=== PATIENT | male | born 1940 | race Caucasian/White ===

== ENCOUNTER 2019-02-26 19:20 | Inpatient (IN) ==
[2019-02-26] MEDS ORDERED: SODIUM CHLORIDE 0.9% 500 ML IV STA (19:42)
[2019-02-26] MEDS ORDERED: ONDANSETRON 4 MG/2 ML VIAL IV STA (19:42)
[2019-02-26] MEDS ORDERED: cefTRIAXone 1,000 MG in SODIUM CHLORIDE 0.9% 100 ML IV STA (19:42)
[2019-02-26] MEDS ORDERED: methylPREDNISolone SOD SUC 125 MG/2 ML VIAL IV STA (19:42)
[2019-02-26] MEDS ORDERED: ALBUTEROL NEB SOLN 5 MG/ML 20 ML/BOTTLE RESP TX SCH (20:00)
[2019-02-26 20:11] LABS: Basophils % 0.1 % (0.0-0.8); Hematocrit 34.5 VOL% (42.0-52.0); Hemoglobin 11.2 GM/DL (14.0-18.0); Immature Granulocytes % 0.6 %; Immature Granulocytes Absolute 0.14 #; Lymphocytes # 1.7 10*3/uL (1.4-4.0); Lymphocytes % 7.5 % (21.2-54.2); Mean Corpuscular HGB Conc 32.5 GM/DL (32-36); Mean Corpuscular Volume 105.2 FL (87-102); Mean Platelet Volume 9.5 FL (9.6-12.0); Monocytes % 6.8 % (1.7-12.7); Platelet Count 211 T/CUMM (130-400); Red Blood Count 3.28 MC/CUMM (3.8-5.5); White Blood Count 22.1 T/CUMM (4-12)
[2019-02-26 20:15] LABS: PT Patient Result 11.1 SECS (9.6-12.2)
[2019-02-26 20:36] LABS: Albumin 3.3 G/DL (3.4-5.0); Bilirubin,Total 0.6 MG/DL (0.2-1.0); Calcium 8.2 MG/DL (8.5-10.1); Osmolality,Calculated 274.8 MOS/KG (273-304); Total Protein 6.3 G/DL (6.4-8.3)
[2019-02-26 20:39] LABS: Band Neutrophils 3 % (0-10); Lymphocytes 11 % (20-55); Segmented Neutrophils 80 % (50-85); Total Cells Counted 100
[2019-02-26 20:40] LABS: Macrocytosis Slight; Platelet Estimate Adequate
[2019-02-26 21:44] LABS: ABG Base Excess 0.5 MMOL/L (-2.5-2.5); ABG HCO3 24.8 MMOL/L (20-26); ABG Oxygen Saturation 91.4 % (95-100); ABG PH 7.457 (7.35-7.45); ABG PO2 55.8 MM HG (80-95); ABG TCO2 21.7 MMOL/L (23-27); Allen Test Positive; Pt O2 Delivery Device Room Air
[2019-02-26] MEDS ORDERED: ACETAMINOPHEN 325 MG TABLET PO PRN (22:16)
[2019-02-26] MEDS ORDERED: MORPHINE 4 MG/1 ML VIAL IV PRN (22:16)
[2019-02-26] MEDS ORDERED: ONDANSETRON 4 MG/2 ML VIAL IV PRN (22:16)
[2019-02-26] MEDS ORDERED: LEVOFLOXACIN INJ 500 MG in PREMIX 1 EACH IV SCH (22:30)
[2019-02-26] MEDS ORDERED: INFLUENZA VIRUS VACCINE 0.5 ML SYRINGE IM ONE (22:32)
[2019-02-26] MEDS: SODIUM CHLORIDE 0.9% 1,000 ML IV SCH (22:42)
[2019-02-26] MEDS: ENOXAPARIN 40 MG/0.4 ML SYRINGE SUBCUT SCH (22:46)
[2019-02-26] MEDS: DOCUSATE SODIUM 100 MG CAPSULE PO SCH (22:47)
[2019-02-26] MEDS: ALBUTEROL/IPRATROPIUM 3 ML NEB RESP TX SCH (23:07)
[2019-02-27] MEDS: PIPERACILLIN/TAZOBACTAM 3,375 MG in SODIUM CHLORIDE 0.9% 100 ML IV SCH ×2 (00:58→08:40)
[2019-02-27] MEDS: ALBUTEROL/IPRATROPIUM 3 ML NEB RESP TX SCH ×5 (02:39→19:30)
[2019-02-27] MEDS: SODIUM CHLORIDE 0.9% 1,000 ML IV SCH ×3 (06:00→22:00)
[2019-02-27] MEDS: methylPREDNISolone SOD SUC 40 MG/1 ML VIAL IV SCH ×3 (06:15→21:42)
[2019-02-27 06:19] LABS: Basophils % 0.1 % (0.0-0.8); Hematocrit 27.5 VOL% (42.0-52.0); Hemoglobin 8.9 GM/DL (14.0-18.0); Immature Granulocytes % 0.4 %; Immature Granulocytes Absolute 0.06 #; Lymphocytes # 1.1 10*3/uL (1.4-4.0); Lymphocytes % 6.7 % (21.2-54.2); Mean Corpuscular HGB Conc 32.4 GM/DL (32-36); Mean Corpuscular Volume 106.6 FL (87-102); Mean Platelet Volume 9.9 FL (9.6-12.0); Neutrophils % 86.8 % (38.7-73.9); Platelet Count 180 T/CUMM (130-400); Red Blood Count 2.58 MC/CUMM (3.8-5.5); White Blood Count 15.9 T/CUMM (4-12)
[2019-02-27 06:42] LABS: Albumin 2.6 G/DL (3.4-5.0); Bilirubin,Total 0.7 MG/DL (0.2-1.0); Calcium 7.7 MG/DL (8.5-10.1); Osmolality,Calculated 285.1 MOS/KG (273-304); Total Protein 5.7 G/DL (6.4-8.3)
[2019-02-27] MEDS: PANTOPRAZOLE 40 MG VIAL IV SCH (08:40)
[2019-02-27] MEDS: DOCUSATE SODIUM 100 MG CAPSULE PO SCH ×2 (08:41→21:41)
[2019-02-27 09:26] LABS: Apearance,Urine CLEAR (Clear); Bilirubin,Urine Negative (Negative); Blood, Urine Negative (Negative); Glucose,Urine (UA) Negative (Negative); Ketones,Urine Negative (Negative); Nitrite,Urine Negative (Negative); Protein,Urine Negative; RBC,Urine 1 /HPF (0-4); Urine Specific Gravity 1.033 (1.001-1.035); Urine Urobilinogen < 2.0 EU/DL (0.2-1.0); WBC,Urine <1 /HPF (0-6)
[2019-02-27 09:27] LABS: Urine Color Dark yellow (Yellow)
[2019-02-27] MEDS ORDERED: MAGNESIUM HYDROXIDE SUSP 30 ML UDCUP PO PRN (13:18)
[2019-02-27] MEDS ORDERED: NITROGLYCERIN SL 0.4 MG TABLET SL PRN (13:18)
[2019-02-27] MEDS ORDERED: NON-FORMULARY MEDICATION (Cranberry 500 MG) PO SCH (13:30)
[2019-02-27] MEDS ORDERED: CILOSTAZOL 100 MG TABLET PO SCH (13:30)
[2019-02-27] MEDS: ASPIRIN CHEW 81 MG TABLET PO SCH (14:16)
[2019-02-27] MEDS: ATORVASTATIN 20 MG TABLET PO SCH (14:17)
[2019-02-27] MEDS: CHOLECALCIFEROL 5,000 UNIT TABLET PO SCH (14:17)
[2019-02-27] MEDS: PHENYTOIN ER 100 MG CAPSULE PO SCH ×2 (14:17→21:41)
[2019-02-27] MEDS: hydroCHLOROthiazide 12.5 MG CAPSULE PO SCH (14:17)
[2019-02-27] MEDS: ENOXAPARIN 40 MG/0.4 ML SYRINGE SUBCUT SCH (21:41)
[2019-02-27] MEDS: OMEGA 3 ACID ETHYL ESTERS 1 GM CAPSULE PO SCH (21:41)
[2019-02-27] MEDS: BUDESONIDE/FORMOTEROL 160-4.5 INHALER 6 GM INH SCH (21:42)
[2019-02-27] MEDS: POLYETHYLENE GLYCOL POWDER 17 GM PACK PO SCH (21:42)
[2019-02-27] MEDS: TAMSULOSIN 0.4 MG CAPSULE PO SCH (21:47)
[2019-02-28] MEDS: ALBUTEROL/IPRATROPIUM 3 ML NEB RESP TX SCH ×3 (00:20→07:22)
[2019-02-28 04:34] LABS: Basophils % 0.2 % (0.0-0.8); Hemoglobin 8.5 GM/DL (14.0-18.0); Immature Granulocytes % 0.6 %; Immature Granulocytes Absolute 0.06 #; Lymphocytes # 0.8 10*3/uL (1.4-4.0); Lymphocytes % 7.5 % (21.2-54.2); Mean Corpuscular HGB Conc 31.5 GM/DL (32-36); Mean Corpuscular Volume 107.6 FL (87-102); Mean Platelet Volume 9.6 FL (9.6-12.0); Monocytes % 6.5 % (1.7-12.7); Neutrophils % 85.2 % (38.7-73.9); Platelet Count 171 T/CUMM (130-400); Red Blood Count 2.51 MC/CUMM (3.8-5.5); Red Cell Distribution Width 14.8 % (9.3-17.3); White Blood Count 10.4 T/CUMM (4-12)
[2019-02-28 05:05] LABS: Osmolality,Calculated 289.4 MOS/KG (273-304)
[2019-02-28 05:09] LABS: Calcium 7.7 MG/DL (8.5-10.1)
[2019-02-28] MEDS: methylPREDNISolone SOD SUC 40 MG/1 ML VIAL IV SCH (05:46)
[2019-02-28 08:01] VITALS: BP 121/48
[2019-02-28] MEDS: POLYETHYLENE GLYCOL POWDER 17 GM PACK PO SCH (08:48)
[2019-02-28] MEDS: SODIUM CHLORIDE 0.9% 1,000 ML IV SCH (08:48)
[2019-02-28] MEDS: ATORVASTATIN 20 MG TABLET PO SCH (08:49)
[2019-02-28] MEDS: CHOLECALCIFEROL 5,000 UNIT TABLET PO SCH (08:49)
[2019-02-28] MEDS: PHENYTOIN ER 100 MG CAPSULE PO SCH (08:49)
[2019-02-28] MEDS: TAMSULOSIN 0.4 MG CAPSULE PO SCH (08:49)
[2019-02-28] MEDS: OMEGA 3 ACID ETHYL ESTERS 1 GM CAPSULE PO SCH (08:50)
[2019-02-28] MEDS: PANTOPRAZOLE 40 MG VIAL IV SCH (08:50)
[2019-02-28] MEDS: hydroCHLOROthiazide 12.5 MG CAPSULE PO SCH (08:50)
[2019-02-28] MEDS: DOCUSATE SODIUM 100 MG CAPSULE PO SCH (08:50)
[2019-02-28] MEDS: ASPIRIN CHEW 81 MG TABLET PO SCH (08:50)
[2019-02-28] MEDS: BUDESONIDE/FORMOTEROL 160-4.5 INHALER 6 GM INH SCH (08:51)
[2019-02-28] MEDS ORDERED: MULTIVITAMIN (CENTRUM) TABLET PO SCH (09:00)
[2019-02-28] MEDS ORDERED: FERROUS SULFATE ER 140 MG TABLET PO SCH (09:00)
[2019-02-28] MEDS ORDERED: MULTIVITAMIN (BEROCCA) TABLET PO SCH (09:00)
[2019-02-28] MEDS ORDERED: VITAMIN E 400 UNIT CAPSULE PO SCH (09:00)
[2019-02-28] MEDS ORDERED: POTASSIUM CHLORIDE 10 MEQ TABLET PO SCH (09:00)
[2019-02-28] MEDS ORDERED: POTASSIUM CHLORIDE 20 MEQ TABLET PO PRN (09:42)
[2019-02-28] MEDS ORDERED: LEVOFLOXACIN 500 MG TABLET PO SCH (15:00)
== END 2019-02-28 11:27 | disposition home or self-care (01) | DRG 194 ==
LOC: EDUNIT# → EDBD → N.ED 19:20 → N.EDINP 20:55 → N.2E 21:55
PROVIDERS: ADMIT Family Medicine; ATTEND Family Medicine

== ENCOUNTER 2019-04-26 18:53 | Inpatient (IN) ==
[2019-04-26] MEDS ORDERED: ALBUTEROL/IPRATROPIUM 3 ML NEB RESP TX STA (18:59)
[2019-04-26] MEDS ORDERED: MAGNESIUM SULF RIDER 2 GM in PREMIX 1 EACH IV STA (18:59)
[2019-04-26] MEDS ORDERED: methylPREDNISolone SOD SUC 125 MG/2 ML VIAL IV STA (18:59)
[2019-04-26 19:18] LABS: Basophils % 0.1 % (0.0-0.8); Eosinophils % 0.1 % (0.00-10.9); Hematocrit 34.1 VOL% (42.0-52.0); Hemoglobin 11.1 GM/DL (14.0-18.0); Immature Granulocytes % 0.4 %; Immature Granulocytes Absolute 0.03 #; Lymphocytes # 0.9 10*3/uL (1.4-4.0); Lymphocytes % 11.9 % (21.2-54.2); Mean Corpuscular HGB Conc 32.6 GM/DL (32-36); Mean Corpuscular Volume 112.9 FL (87-102); Mean Platelet Volume 9.6 FL (9.6-12.0); Monocytes % 7.4 % (1.7-12.7); Neutrophils % 80.1 % (38.7-73.9); Platelet Count 205 T/CUMM (130-400); Red Blood Count 3.02 MC/CUMM (3.8-5.5); Red Cell Distribution Width 13.2 % (9.3-17.3); White Blood Count 7.6 T/CUMM (4-12)
[2019-04-26 19:25] LABS: ABG Base Excess 1.6 MMOL/L (-2.5-2.5); ABG HCO3 25.9 MMOL/L (20-26); ABG Oxygen Saturation 97.9 % (95-100); ABG PCO2 34.1 MM HG (35-48); ABG PH 7.471 (7.35-7.45); ABG PO2 81.9 MM HG (80-95); ABG TCO2 22.3 MMOL/L (23-27); Allen Test Positive
[2019-04-26 19:46] LABS: Albumin 3.4 G/DL (3.4-5.0); Bilirubin,Total 0.4 MG/DL (0.2-1.0); Calcium 8.6 MG/DL (8.5-10.1); Osmolality,Calculated 281.5 MOS/KG (273-304); Total Protein 6.8 G/DL (6.4-8.3)
[2019-04-26] MEDS: ALBUTEROL 2.5 MG/3 ML NEB RESP TX SCH ×3 (20:01→20:58)
[2019-04-26] MEDS ORDERED: SODIUM CHLORIDE 0.9% 2,000 ML IV ONE (20:45)
[2019-04-26] MEDS ORDERED: ALBUTEROL 2.5 MG/3 ML NEB RESP TX PRN (20:47)
[2019-04-26] MEDS ORDERED: hydrALAZINE 20 MG/1 ML VIAL IV PRN (20:48)
[2019-04-26] MEDS ORDERED: DOCUSATE SODIUM 100 MG CAPSULE PO PRN (20:52)
[2019-04-26] MEDS ORDERED: ONDANSETRON 4 MG/2 ML VIAL IV PRN (20:52)
[2019-04-26] MEDS ORDERED: PROMETHAZINE 25 MG TABLET PO PRN (20:52)
[2019-04-26] MEDS ORDERED: guaiFENesin/DM ER 600-30 MG TABLET PO PRN (20:52)
[2019-04-26] MEDS ORDERED: ACETAMINOPHEN 325 MG TABLET PO PRN (20:52)
[2019-04-26] MEDS ORDERED: VANCOMYCIN INJ 1,000 MG in SODIUM CHLORIDE 0.9% 250 ML IV SCH (21:00)
[2019-04-26] MEDS ORDERED: LEVOFLOXACIN INJ 500 MG in PREMIX 1 EACH IV SCH (21:00)
[2019-04-26 22:03] LABS: Anisocytosis 1+; Platelet Estimate Adequate
[2019-04-26] MEDS: ALBUTEROL/IPRATROPIUM 3 ML NEB RESP TX SCH (23:30)
[2019-04-26] MEDS: ENOXAPARIN 40 MG/0.4 ML SYRINGE SUBCUT SCH (23:35)
[2019-04-26] MEDS: SODIUM CHLORIDE 0.9% 1,000 ML IV SCH (23:36)
[2019-04-27] MEDS ORDERED: methylPREDNISolone SOD SUC 40 MG/1 ML VIAL IV SCH ×2 (03:00→08:00)
[2019-04-27] MEDS: ALBUTEROL/IPRATROPIUM 3 ML NEB RESP TX SCH ×5 (03:19→18:50)
[2019-04-27 05:22] LABS: Calcium 7.8 MG/DL (8.5-10.1); Osmolality,Calculated 278.7 MOS/KG (273-304)
[2019-04-27 07:51] LABS: ABG Base Excess -1.6 MMOL/L (-2.5-2.5); ABG HCO3 22.3 MMOL/L (20-26); ABG Oxygen Saturation 98.9 % (95-100); ABG PCO2 34.5 MM HG (35-48); ABG PH 7.428 (7.35-7.45); ABG PO2 159.7 MM HG (80-95); ABG TCO2 23.3 MMOL/L (23-27)
[2019-04-27] MEDS ORDERED: LORazepam 2 MG/1 ML VIAL IV ONE (07:57)
[2019-04-27] MEDS: PANTOPRAZOLE 40 MG TABLET PO SCH (10:05)
[2019-04-27] MEDS: NICOTINE 21 MG/24 HR PATCH TRANSDERM SCH (10:08)
[2019-04-27] MEDS: cefTRIAXone 1,000 MG in SYRINGE 1 EACH IV SCH (12:56)
[2019-04-27] MEDS: SODIUM CHLORIDE 0.9% 1,000 ML IV SCH (15:00)
[2019-04-27] MEDS: methylPREDNISolone SOD SUC 40 MG/1 ML VIAL IV SCH ×2 (15:05→21:04)
[2019-04-27] MEDS: ENOXAPARIN 40 MG/0.4 ML SYRINGE SUBCUT SCH (21:04)
[2019-04-27] MEDS: ZALEPLON 5 MG CAPSULE PO PRN (21:11)
[2019-04-27 22:46] LABS: Apearance,Urine CLEAR (Clear); Bilirubin,Urine Negative (Negative); Blood, Urine Negative (Negative); Glucose,Urine (UA) Negative (Negative); Ketones,Urine Negative (Negative); Nitrite,Urine Negative (Negative); Protein,Urine Negative; RBC,Urine 2 /HPF (0-4); Urine Color Yellow (Yellow); Urine Specific Gravity 1.005 (1.001-1.035); Urine Urobilinogen < 2.0 EU/DL (0.2-1.0); WBC,Urine 1 /HPF (0-6)
[2019-04-28] MEDS: ALBUTEROL/IPRATROPIUM 3 ML NEB RESP TX SCH ×7 (00:31→23:22)
[2019-04-28] MEDS: methylPREDNISolone SOD SUC 40 MG/1 ML VIAL IV SCH ×4 (03:38→21:06)
[2019-04-28] MEDS ORDERED: POLYCARBOPHIL 625 MG TABLET PO PRN (09:13)
[2019-04-28] MEDS ORDERED: NON-FORMULARY MEDICATION (Omeprazole 20 MG) PO SCH (09:15)
[2019-04-28] MEDS: SODIUM CHLORIDE 0.9% 1,000 ML IV SCH (09:55)
[2019-04-28] MEDS: NICOTINE 21 MG/24 HR PATCH TRANSDERM SCH (10:32)
[2019-04-28] MEDS: PANTOPRAZOLE 40 MG TABLET PO SCH (10:35)
[2019-04-28] MEDS: PHENYTOIN ER 100 MG CAPSULE PO SCH ×2 (10:36→20:45)
[2019-04-28] MEDS: TAMSULOSIN 0.4 MG CAPSULE PO SCH ×2 (10:39→20:46)
[2019-04-28] MEDS: hydroCHLOROthiazide 12.5 MG CAPSULE PO SCH (10:40)
[2019-04-28] MEDS: POTASSIUM CHLORIDE 10 MEQ TABLET PO SCH (10:41)
[2019-04-28] MEDS: cilostazoL 100 MG TABLET PO SCH ×2 (10:42→20:45)
[2019-04-28] MEDS: cefTRIAXone 1,000 MG in SYRINGE 1 EACH IV SCH (13:42)
[2019-04-28] MEDS: ASPIRIN CHEW 81 MG TABLET PO SCH (20:45)
[2019-04-28] MEDS: ENOXAPARIN 40 MG/0.4 ML SYRINGE SUBCUT SCH (20:46)
[2019-04-28] MEDS: ZALEPLON 5 MG CAPSULE PO PRN (21:09)
[2019-04-29] MEDS: SODIUM CHLORIDE 0.9% 1,000 ML IV SCH ×2 (03:17→17:00)
[2019-04-29] MEDS: methylPREDNISolone SOD SUC 40 MG/1 ML VIAL IV SCH ×4 (03:17→21:12)
[2019-04-29] MEDS: ALBUTEROL/IPRATROPIUM 3 ML NEB RESP TX SCH ×5 (03:22→20:52)
[2019-04-29] MEDS: NICOTINE 21 MG/24 HR PATCH TRANSDERM SCH (09:02)
[2019-04-29] MEDS: cilostazoL 100 MG TABLET PO SCH ×2 (09:02→21:12)
[2019-04-29] MEDS: PHENYTOIN ER 100 MG CAPSULE PO SCH ×2 (09:02→21:11)
[2019-04-29] MEDS: TAMSULOSIN 0.4 MG CAPSULE PO SCH ×2 (09:03→21:12)
[2019-04-29] MEDS: FERROUS SULFATE 325 MG TABLET PO SCH (09:03)
[2019-04-29] MEDS: PANTOPRAZOLE 40 MG TABLET PO SCH (09:03)
[2019-04-29] MEDS: hydroCHLOROthiazide 12.5 MG CAPSULE PO SCH (09:03)
[2019-04-29] MEDS: POTASSIUM CHLORIDE 10 MEQ TABLET PO SCH (09:03)
[2019-04-29] MEDS: cefTRIAXone 1,000 MG in SYRINGE 1 EACH IV SCH (14:36)
[2019-04-29] MEDS: ENOXAPARIN 40 MG/0.4 ML SYRINGE SUBCUT SCH (21:12)
[2019-04-29] MEDS: ASPIRIN CHEW 81 MG TABLET PO SCH (21:12)
[2019-04-29] MEDS: ZALEPLON 5 MG CAPSULE PO PRN (23:21)
[2019-04-30] MEDS: ALBUTEROL/IPRATROPIUM 3 ML NEB RESP TX SCH ×6 (00:43→20:07)
[2019-04-30] MEDS: methylPREDNISolone SOD SUC 40 MG/1 ML VIAL IV SCH ×4 (03:48→21:37)
[2019-04-30] MEDS: POTASSIUM CHLORIDE 10 MEQ TABLET PO SCH (09:04)
[2019-04-30] MEDS: TAMSULOSIN 0.4 MG CAPSULE PO SCH ×2 (09:04→20:48)
[2019-04-30] MEDS: SODIUM CHLORIDE 0.9% 1,000 ML IV SCH (09:04)
[2019-04-30] MEDS: cilostazoL 100 MG TABLET PO SCH ×2 (09:04→20:48)
[2019-04-30] MEDS: PHENYTOIN ER 100 MG CAPSULE PO SCH ×2 (09:04→20:48)
[2019-04-30] MEDS: hydroCHLOROthiazide 12.5 MG CAPSULE PO SCH (09:04)
[2019-04-30] MEDS: PANTOPRAZOLE 40 MG TABLET PO SCH (09:05)
[2019-04-30] MEDS: NICOTINE 21 MG/24 HR PATCH TRANSDERM SCH (09:05)
[2019-04-30] MEDS: cefTRIAXone 1,000 MG in SYRINGE 1 EACH IV SCH (14:54)
[2019-04-30] MEDS: ENOXAPARIN 40 MG/0.4 ML SYRINGE SUBCUT SCH (20:48)
[2019-04-30] MEDS: ASPIRIN CHEW 81 MG TABLET PO SCH (20:48)
[2019-04-30] MEDS: ZALEPLON 5 MG CAPSULE PO PRN (20:48)
[2019-05-01] MEDS: SODIUM CHLORIDE 0.9% 1,000 ML IV SCH ×2 (00:42→17:37)
[2019-05-01] MEDS: ALBUTEROL/IPRATROPIUM 3 ML NEB RESP TX SCH ×7 (00:44→22:46)
[2019-05-01] MEDS: methylPREDNISolone SOD SUC 40 MG/1 ML VIAL IV SCH ×4 (03:48→21:00)
[2019-05-01] MEDS ORDERED: LIDOCAINE 1% 20 ML VIAL MISC INJ ONE (06:00)
[2019-05-01] MEDS ORDERED: LIDOCAINE 2% 20 ML VIAL RESP TX ONE (06:00)
[2019-05-01] MEDS ORDERED: PROMETHAZINE 25 MG/1 ML VIAL IM ONE (06:00)
[2019-05-01] MEDS ORDERED: GLYCOPYRROLATE 0.4 MG/2 ML VIAL IM ONE (06:00)
[2019-05-01 06:18] LABS: Basophils % 0.2 % (0.0-0.8); Eosinophils % 0.5 % (0.00-10.9); Hematocrit 33.1 VOL% (42.0-52.0); Hemoglobin 10.6 GM/DL (14.0-18.0); Immature Granulocytes % 0.2 %; Immature Granulocytes Absolute 0.01 #; Lymphocytes # 0.6 10*3/uL (1.4-4.0); Lymphocytes % 13.3 % (21.2-54.2); Mean Corpuscular Volume 110.7 FL (87-102); Mean Platelet Volume 9.5 FL (9.6-12.0); Monocytes % 9.2 % (1.7-12.7); Neutrophils % 76.6 % (38.7-73.9); Platelet Count 190 T/CUMM (130-400); Red Blood Count 2.99 MC/CUMM (3.8-5.5); Red Cell Distribution Width 12.6 % (9.3-17.3); White Blood Count 4.2 T/CUMM (4-12)
[2019-05-01 06:39] LABS: Anisocytosis 2+; Macrocytosis 2+; Platelet Estimate Normal
[2019-05-01] MEDS ORDERED: MEPERIDINE 50 MG/1 ML VIAL IM ONE (07:00)
[2019-05-01] MEDS ORDERED: LIDOCAINE 2% VISCOUS 100 ML BOTTLE SWISH/SPIT ONE (07:30)
[2019-05-01] MEDS ORDERED: MIDAZOLAM 2 MG/2 ML VIAL IV ONE (07:30)
[2019-05-01] MEDS ORDERED: MIDAZOLAM 2 MG/2 ML VIAL ONE (08:27)
[2019-05-01] MEDS: cilostazoL 100 MG TABLET PO SCH ×2 (09:45→20:50)
[2019-05-01] MEDS: POTASSIUM CHLORIDE 10 MEQ TABLET PO SCH (09:45)
[2019-05-01] MEDS: PHENYTOIN ER 100 MG CAPSULE PO SCH ×2 (09:45→20:50)
[2019-05-01] MEDS: hydroCHLOROthiazide 12.5 MG CAPSULE PO SCH (09:45)
[2019-05-01] MEDS: PANTOPRAZOLE 40 MG TABLET PO SCH (09:45)
[2019-05-01] MEDS: TAMSULOSIN 0.4 MG CAPSULE PO SCH ×2 (09:45→20:50)
[2019-05-01] MEDS: NICOTINE 21 MG/24 HR PATCH TRANSDERM SCH (09:45)
[2019-05-01] MEDS: FERROUS SULFATE 325 MG TABLET PO SCH (09:45)
[2019-05-01] MEDS ORDERED: SODIUM CHLORIDE 0.9% 100 ML IV ONE (12:00)
[2019-05-01] MEDS: cefTRIAXone 1,000 MG in SYRINGE 1 EACH IV SCH (12:08)
[2019-05-01] MEDS: ASPIRIN CHEW 81 MG TABLET PO SCH (20:50)
[2019-05-01] MEDS: ZALEPLON 5 MG CAPSULE PO PRN (20:50)
[2019-05-01] MEDS: ENOXAPARIN 40 MG/0.4 ML SYRINGE SUBCUT SCH (20:52)
[2019-05-02] MEDS: ALBUTEROL/IPRATROPIUM 3 ML NEB RESP TX SCH ×6 (02:40→22:46)
[2019-05-02] MEDS: methylPREDNISolone SOD SUC 40 MG/1 ML VIAL IV SCH ×2 (03:08→09:09)
[2019-05-02] MEDS: TAMSULOSIN 0.4 MG CAPSULE PO SCH ×2 (09:09→21:39)
[2019-05-02] MEDS: PHENYTOIN ER 100 MG CAPSULE PO SCH ×2 (09:09→21:41)
[2019-05-02] MEDS: POTASSIUM CHLORIDE 10 MEQ TABLET PO SCH (09:09)
[2019-05-02] MEDS: PANTOPRAZOLE 40 MG TABLET PO SCH (09:09)
[2019-05-02] MEDS: cilostazoL 100 MG TABLET PO SCH ×2 (09:09→21:38)
[2019-05-02] MEDS: NICOTINE 21 MG/24 HR PATCH TRANSDERM SCH (09:09)
[2019-05-02] MEDS: hydroCHLOROthiazide 12.5 MG CAPSULE PO SCH (09:09)
[2019-05-02] MEDS: cefTAZidime 1,000 MG in SYRINGE 1 EACH IV SCH ×2 (14:01→21:39)
[2019-05-02] MEDS: ASPIRIN CHEW 81 MG TABLET PO SCH (21:38)
[2019-05-02] MEDS: ENOXAPARIN 40 MG/0.4 ML SYRINGE SUBCUT SCH (21:38)
[2019-05-02] MEDS: ZALEPLON 5 MG CAPSULE PO PRN (21:55)
[2019-05-03] MEDS: ALBUTEROL/IPRATROPIUM 3 ML NEB RESP TX SCH ×3 (02:44→11:22)
[2019-05-03] MEDS: cefTAZidime 1,000 MG in SYRINGE 1 EACH IV SCH (06:28)
[2019-05-03] MEDS: POTASSIUM CHLORIDE 10 MEQ TABLET PO SCH (08:49)
[2019-05-03] MEDS: hydroCHLOROthiazide 12.5 MG CAPSULE PO SCH (08:49)
[2019-05-03] MEDS: NICOTINE 21 MG/24 HR PATCH TRANSDERM SCH (08:49)
[2019-05-03] MEDS: cilostazoL 100 MG TABLET PO SCH (08:49)
[2019-05-03] MEDS: PHENYTOIN ER 100 MG CAPSULE PO SCH (08:49)
[2019-05-03] MEDS: PANTOPRAZOLE 40 MG TABLET PO SCH (08:49)
[2019-05-03] MEDS: TAMSULOSIN 0.4 MG CAPSULE PO SCH (08:49)
[2019-05-03] MEDS ORDERED: SULFAMETHOX/TRIMETHOPRIM 800-160 MG TABLET PO SCH (11:32)
[2019-05-03 12:58] VITALS: BP 129/74
== END 2019-05-03 13:40 | disposition home health service (06) | DRG 191 ==
LOC: EDUNIT# → EDBD → N.ED 18:53 → N.EDINP 20:52 → SUPCPDRO 20:52 → N.EDINP 21:57 → N.5E 22:04
PROVIDERS: ADMIT Internal Medicine Geriatric Medicine; ATTEND Internal Medicine Geriatric Medicine

== ENCOUNTER 2019-05-07 19:10 | Inpatient (IN) ==
[2019-05-07] MEDS ORDERED: methylPREDNISolone SOD SUC 125 MG/2 ML VIAL IV STA (19:51)
[2019-05-07 19:57] LABS: Basophils % 0.2 % (0.0-0.8); Eosinophils % 0.3 % (0.00-10.9); Hematocrit 33.6 VOL% (42.0-52.0); Hemoglobin 11.8 GM/DL (14.0-18.0); Immature Granulocytes % 0.4 %; Immature Granulocytes Absolute 0.05 #; Lymphocytes # 0.7 10*3/uL (1.4-4.0); Lymphocytes % 5.2 % (21.2-54.2); Mean Corpuscular HGB Conc 35.1 GM/DL (32-36); Mean Corpuscular Volume 110.5 FL (87-102); Mean Platelet Volume 9.9 FL (9.6-12.0); Monocytes % 5.1 % (1.7-12.7); Neutrophils % 88.8 % (38.7-73.9); Platelet Count 230 T/CUMM (130-400); Red Blood Count 3.04 MC/CUMM (3.8-5.5); Red Cell Distribution Width 13.2 % (9.3-17.3); White Blood Count 12.8 T/CUMM (4-12)
[2019-05-07] MEDS ORDERED: ALBUTEROL NEB SOLN 5 MG/ML 20 ML/BOTTLE CONT NEB SCH (20:00)
[2019-05-07 20:06] LABS: PT Patient Result 10.5 SECS (9.6-12.2)
[2019-05-07 20:11] LABS: Albumin 3.6 G/DL (3.4-5.0); Bilirubin,Total 0.6 MG/DL (0.2-1.0); Calcium 8.8 MG/DL (8.5-10.1); Osmolality,Calculated 269.2 MOS/KG (273-304); Total Protein 6.8 G/DL (6.4-8.3)
[2019-05-07 20:21] LABS: ABG Base Excess 0.5 MMOL/L (-2.5-2.5); ABG HCO3 24.8 MMOL/L (20-26); ABG Oxygen Saturation 94.3 % (95-100); ABG PH 7.503 (7.35-7.45); ABG PO2 65.1 MM HG (80-95); ABG TCO2 20.5 MMOL/L (23-27); Allen Test Positive
[2019-05-07 21:04] LABS: Macrocytosis 2+; Platelet Estimate Normal
[2019-05-08] MEDS ORDERED: ACETAMINOPHEN 325 MG TABLET PO PRN (00:43)
[2019-05-08] MEDS ORDERED: NITROGLYCERIN SL 0.4 MG TABLET SL PRN (00:43)
[2019-05-08] MEDS ORDERED: ONDANSETRON 4 MG/2 ML VIAL IV PRN (00:43)
[2019-05-08] MEDS ORDERED: POLYCARBOPHIL 625 MG TABLET PO PRN (00:43)
[2019-05-08] MEDS ORDERED: ASPIRIN CHEW 81 MG TABLET PO SCH (00:43)
[2019-05-08] MEDS ORDERED: ENOXAPARIN 40 MG/0.4 ML SYRINGE SUBCUT SCH (01:00)
[2019-05-08] MEDS: PHENYTOIN ER 100 MG CAPSULE PO SCH ×3 (01:31→20:52)
[2019-05-08 02:07] LABS: Albumin 2.9 G/DL (3.4-5.0); Bilirubin,Total 0.5 MG/DL (0.2-1.0); Calcium 7.9 MG/DL (8.5-10.1); Osmolality,Calculated 286.1 MOS/KG (273-304); Total Protein 6.1 G/DL (6.4-8.3)
[2019-05-08] MEDS: ALBUTEROL/IPRATROPIUM 3 ML NEB RESP TX SCH ×6 (02:33→23:25)
[2019-05-08 03:57] LABS: Basophils % 0.1 % (0.0-0.8); Hematocrit 29.2 VOL% (42.0-52.0); Hemoglobin 9.6 GM/DL (14.0-18.0); Immature Granulocytes % 0.4 %; Immature Granulocytes Absolute 0.06 #; Lymphocytes # 0.7 10*3/uL (1.4-4.0); Lymphocytes % 4.6 % (21.2-54.2); Mean Corpuscular HGB Conc 32.9 GM/DL (32-36); Monocytes % 3.8 % (1.7-12.7); Neutrophils % 91.1 % (38.7-73.9); Platelet Count 181 T/CUMM (130-400); Red Blood Count 2.73 MC/CUMM (3.8-5.5); Red Cell Distribution Width 13.4 % (9.3-17.3); White Blood Count 15.8 T/CUMM (4-12)
[2019-05-08 04:25] LABS: Band Neutrophils 2 % (0-10); Hypochromasia Slight; Lymphocytes 4 % (20-55); Segmented Neutrophils 88 % (50-85); Total Cells Counted 100
[2019-05-08 04:26] LABS: Macrocytosis Slight; Platelet Estimate Adequate; Polychromasia Slight
[2019-05-08] MEDS: NICOTINE 21 MG/24 HR PATCH TRANSDERM SCH (08:40)
[2019-05-08] MEDS: MULTIVITAMIN (CENTRUM) TABLET PO SCH (08:41)
[2019-05-08] MEDS: MULTIVITAMIN (BEROCCA) TABLET PO SCH (08:41)
[2019-05-08] MEDS: OMEGA 3 ACID ETHYL ESTERS 1 GM CAPSULE PO SCH ×2 (08:41→20:52)
[2019-05-08] MEDS: POTASSIUM CHLORIDE 10 MEQ TABLET PO SCH (08:41)
[2019-05-08] MEDS: ATORVASTATIN 20 MG TABLET PO SCH (08:42)
[2019-05-08] MEDS: TAMSULOSIN 0.4 MG CAPSULE PO SCH ×2 (08:42→20:52)
[2019-05-08] MEDS: CHOLECALCIFEROL 5,000 UNIT TABLET PO SCH (08:42)
[2019-05-08] MEDS: hydroCHLOROthiazide 12.5 MG CAPSULE PO SCH (08:42)
[2019-05-08] MEDS: PANTOPRAZOLE 40 MG TABLET PO SCH (08:43)
[2019-05-08] MEDS: predniSONE 10 MG TABLET PO SCH (08:43)
[2019-05-08] MEDS ORDERED: FERROUS SULFATE 325 MG TABLET PO SCH (09:00)
[2019-05-08] MEDS: SULFAMETHOX/TRIMETHOPRIM 800-160 MG TABLET PO SCH ×2 (10:00→20:52)
[2019-05-08] MEDS: cilostazoL 100 MG TABLET PO SCH ×2 (10:01→20:52)
[2019-05-08] MEDS: BUDESONIDE/FORMOTEROL 160-4.5 INHALER 6 GM INH SCH ×2 (10:01→20:56)
[2019-05-08] MEDS ORDERED: GLUCAGON 1 MG VIAL IM PRN (10:12)
[2019-05-08] MEDS ORDERED: DEXTROSE 10% 25 GM/250 ML BAG IV PRN (10:12)
[2019-05-08] MEDS: INSULIN LISPRO 100 UNIT/ML SUBCUT SCH ×2 (14:23→21:00)
[2019-05-09] MEDS: ALBUTEROL/IPRATROPIUM 3 ML NEB RESP TX SCH ×3 (03:20→11:20)
[2019-05-09 05:23] LABS: Basophils % 0.2 % (0.0-0.8); Eosinophils % 0.4 % (0.00-10.9); Hematocrit 27.5 VOL% (42.0-52.0); Immature Granulocytes % 0.4 %; Immature Granulocytes Absolute 0.04 #; Mean Corpuscular HGB Conc 32.7 GM/DL (32-36); Mean Corpuscular Volume 108.7 FL (87-102); Mean Platelet Volume 10.2 FL (9.6-12.0); Monocytes % 6.8 % (1.7-12.7); Neutrophils % 83.2 % (38.7-73.9); Platelet Count 215 T/CUMM (130-400); Red Blood Count 2.53 MC/CUMM (3.8-5.5); Red Cell Distribution Width 13.2 % (9.3-17.3); White Blood Count 10.8 T/CUMM (4-12)
[2019-05-09 05:38] LABS: Calcium 8.1 MG/DL (8.5-10.1); Osmolality,Calculated 273.1 MOS/KG (273-304)
[2019-05-09] MEDS: INSULIN LISPRO 100 UNIT/ML SUBCUT SCH (07:50)
[2019-05-09 07:53] VITALS: BP 110/55
[2019-05-09] MEDS: PHENYTOIN ER 100 MG CAPSULE PO SCH (08:28)
[2019-05-09] MEDS: CHOLECALCIFEROL 5,000 UNIT TABLET PO SCH (08:28)
[2019-05-09] MEDS: OMEGA 3 ACID ETHYL ESTERS 1 GM CAPSULE PO SCH (08:28)
[2019-05-09] MEDS: predniSONE 10 MG TABLET PO SCH (08:28)
[2019-05-09] MEDS: MULTIVITAMIN (CENTRUM) TABLET PO SCH (08:28)
[2019-05-09] MEDS: SULFAMETHOX/TRIMETHOPRIM 800-160 MG TABLET PO SCH (08:29)
[2019-05-09] MEDS: ATORVASTATIN 20 MG TABLET PO SCH (08:29)
[2019-05-09] MEDS: cilostazoL 100 MG TABLET PO SCH (08:29)
[2019-05-09] MEDS: hydroCHLOROthiazide 12.5 MG CAPSULE PO SCH (08:29)
[2019-05-09] MEDS: TAMSULOSIN 0.4 MG CAPSULE PO SCH (08:29)
[2019-05-09] MEDS: NICOTINE 21 MG/24 HR PATCH TRANSDERM SCH (08:29)
[2019-05-09] MEDS: MULTIVITAMIN (BEROCCA) TABLET PO SCH (08:29)
[2019-05-09] MEDS: PANTOPRAZOLE 40 MG TABLET PO SCH (08:29)
[2019-05-09] MEDS: POTASSIUM CHLORIDE 10 MEQ TABLET PO SCH (08:29)
[2019-05-09] MEDS: BUDESONIDE/FORMOTEROL 160-4.5 INHALER 6 GM INH SCH (08:33)
== END 2019-05-09 11:49 | disposition home health service (06) | DRG 191 ==
LOC: EDBD → EDUNIT# → N.EDINP 19:10 → N.ED 19:10 → N.2W 23:42 → SUATTDRO 05-08 21:58
PROVIDERS: ADMIT Internal Medicine; ATTEND Internal Medicine

== ENCOUNTER 2019-05-30 04:06 | Observation (INO) ==
[2019-05-30] MEDS ORDERED: SODIUM CHLORIDE 0.9% 1,000 ML IV STA (04:25)
[2019-05-30] MEDS ORDERED: methylPREDNISolone SOD SUC 125 MG/2 ML VIAL IV STA (04:25)
[2019-05-30] MEDS ORDERED: ALBUTEROL/IPRATROPIUM 3 ML NEB RESP TX STA (04:25)
[2019-05-30 04:51] LABS: Basophils % 0.3 % (0.0-0.8); Eosinophils # 0.1 10*3/uL (0.0-0.87); Eosinophils % 0.9 % (0.00-10.9); Hematocrit 29.5 VOL% (42.0-52.0); Hemoglobin 9.3 GM/DL (14.0-18.0); Immature Granulocytes % 0.4 %; Immature Granulocytes Absolute 0.03 #; Lymphocytes # 0.7 10*3/uL (1.4-4.0); Lymphocytes % 9.5 % (21.2-54.2); Mean Corpuscular HGB Conc 31.5 GM/DL (32-36); Mean Corpuscular Volume 115.2 FL (87-102); Mean Platelet Volume 9.4 FL (9.6-12.0); Monocytes % 8.5 % (1.7-12.7); Neutrophils % 80.4 % (38.7-73.9); Platelet Count 249 T/CUMM (130-400); Red Blood Count 2.56 MC/CUMM (3.8-5.5); Red Cell Distribution Width 16.1 % (9.3-17.3); White Blood Count 7.8 T/CUMM (4-12)
[2019-05-30 05:00] LABS: PT Patient Result 10.6 SECS (9.6-12.2)
[2019-05-30 05:11] LABS: ABG Base Excess 1.2 MMOL/L (-2.5-2.5); ABG HCO3 25.5 MMOL/L (20-26); ABG Oxygen Saturation 94.2 % (95-100); ABG PCO2 33.9 MM HG (35-48); ABG PH 7.472 (7.35-7.45); ABG PO2 60.9 MM HG (80-95); ABG TCO2 23.6 MMOL/L (23-27); Allen Test Positive
[2019-05-30 05:16] LABS: Albumin 3.2 G/DL (3.4-5.0); Bilirubin,Total 0.5 MG/DL (0.2-1.0); Calcium 8.4 MG/DL (8.5-10.1); Osmolality,Calculated 280.5 MOS/KG (273-304); Total Protein 6.3 G/DL (6.4-8.3)
[2019-05-30 05:20] LABS: Hypochromasia 1+; Platelet Estimate Adequate
[2019-05-30] MEDS ORDERED: LEVOFLOXACIN INJ 500 MG in PREMIX 1 EACH IV STA (05:24)
[2019-05-30] MEDS ORDERED: diphenhydrAMINE CAP 25 MG CAPSULE PO PRN (05:51)
[2019-05-30] MEDS ORDERED: ALUMINUM/MAGNES/SIMETH MAX STR 30 ML UDCUP PO PRN (05:51)
[2019-05-30] MEDS ORDERED: ONDANSETRON 4 MG/2 ML VIAL IV PRN (05:51)
[2019-05-30] MEDS ORDERED: ACETAMINOPHEN 325 MG TABLET PO PRN (05:51)
[2019-05-30] MEDS ORDERED: MORPHINE 4 MG/1 ML VIAL IV PRN (05:51)
[2019-05-30] MEDS ORDERED: hydrALAZINE 20 MG/1 ML VIAL IV PRN (05:51)
[2019-05-30] MEDS ORDERED: guaiFENesin/DM ER 600-30 MG TABLET PO PRN (05:51)
[2019-05-30] MEDS ORDERED: NICOTINE 21 MG/24 HR PATCH TRANSDERM PRN (05:51)
[2019-05-30] MEDS: LEVOFLOXACIN INJ 500 MG in PREMIX 1 EACH IV SCH (07:13)
[2019-05-30] MEDS: ALBUTEROL/IPRATROPIUM 3 ML NEB RESP TX SCH ×3 (11:32→19:47)
[2019-05-30] MEDS: methylPREDNISolone SOD SUC 40 MG/1 ML VIAL IV SCH ×2 (12:08→20:49)
[2019-05-30] MEDS: BUDESONIDE 0.5 MG/2 ML NEB RESP TX SCH (19:47)
[2019-05-30] MEDS: ARFORMOTEROL 15 MCG/2 ML NEB RESP TX SCH (19:47)
[2019-05-31] MEDS: ALBUTEROL/IPRATROPIUM 3 ML NEB RESP TX SCH ×3 (01:34→15:00)
[2019-05-31] MEDS: methylPREDNISolone SOD SUC 40 MG/1 ML VIAL IV SCH ×2 (05:35→13:29)
[2019-05-31] MEDS: LEVOFLOXACIN INJ 500 MG in PREMIX 1 EACH IV SCH (05:43)
[2019-05-31 06:06] LABS: Basophils % 0.2 % (0.0-0.8); Eosinophils % 0.3 % (0.00-10.9); Hematocrit 26.8 VOL% (42.0-52.0); Hemoglobin 8.3 GM/DL (14.0-18.0); Immature Granulocytes % 0.5 %; Immature Granulocytes Absolute 0.03 #; Mean Corpuscular Volume 113.6 FL (87-102); Mean Platelet Volume 9.6 FL (9.6-12.0); Monocytes % 9.6 % (1.7-12.7); Neutrophils % 72.4 % (38.7-73.9); Platelet Count 228 T/CUMM (130-400); Red Blood Count 2.36 MC/CUMM (3.8-5.5); Red Cell Distribution Width 15.7 % (9.3-17.3); White Blood Count 5.8 T/CUMM (4-12)
[2019-05-31 07:04] LABS: Calcium 8.1 MG/DL (8.5-10.1); Osmolality,Calculated 280.4 MOS/KG (273-304)
[2019-05-31 08:03] LABS: Hypochromasia 1+; Ovalocytes Slight; Platelet Estimate Adequate
[2019-05-31] MEDS: BUDESONIDE 0.5 MG/2 ML NEB RESP TX SCH (08:30)
[2019-05-31] MEDS: ARFORMOTEROL 15 MCG/2 ML NEB RESP TX SCH (08:40)
[2019-05-31 13:30] VITALS: BP 139/67
== END 2019-05-31 14:58 | disposition home or self-care (01) ==
LOC: EDUNIT# → EDBD → N.ED 04:06 → N.EDINP 05:56 → INTOOBSV 05:56 → N.TELEN 06:21
PROVIDERS: ADMIT Internal Medicine; ATTEND Internal Medicine

== ENCOUNTER 2019-06-13 00:43 | Observation (INO) ==
[2019-06-13 01:01] LABS: Basophils % 0.3 % (0.0-0.8); Eosinophils # 0.1 10*3/uL (0.0-0.87); Eosinophils % 0.7 % (0.00-10.9); Hematocrit 29.5 VOL% (42.0-52.0); Hemoglobin 8.9 GM/DL (14.0-18.0); Immature Granulocytes % 0.5 %; Immature Granulocytes Absolute 0.05 #; Lymphocytes # 0.9 10*3/uL (1.4-4.0); Lymphocytes % 8.8 % (21.2-54.2); Mean Corpuscular HGB Conc 30.2 GM/DL (32-36); Mean Corpuscular Volume 107.7 FL (87-102); Mean Platelet Volume 9.6 FL (9.6-12.0); Monocytes % 8.1 % (1.7-12.7); Neutrophils % 81.6 % (38.7-73.9); Platelet Count 247 T/CUMM (130-400); Red Blood Count 2.74 MC/CUMM (3.8-5.5); Red Cell Distribution Width 15.1 % (9.3-17.3); White Blood Count 9.7 T/CUMM (4-12)
[2019-06-13] MEDS ORDERED: ALBUTEROL/IPRATROPIUM 3 ML NEB RESP TX STA (01:04)
[2019-06-13] MEDS ORDERED: methylPREDNISolone SOD SUC 125 MG/2 ML VIAL IV STA (01:04)
[2019-06-13 01:08] LABS: INR 0.9; PT Patient Result 10.3 SECS (9.6-12.2); Partial Thromboplastin Time 25.1 SECS (20.8-36.0)
[2019-06-13 01:35] LABS: Bilirubin,Total 0.8 MG/DL (0.2-1.0); Calcium 8.7 MG/DL (8.5-10.1); Total Protein 6.5 G/DL (6.4-8.3)
[2019-06-13] MEDS ORDERED: LEVOFLOXACIN INJ 500 MG in PREMIX 1 EACH IV STA (02:26)
[2019-06-13] MEDS ORDERED: hydrALAZINE 20 MG/1 ML VIAL IV PRN (03:02)
[2019-06-13] MEDS ORDERED: guaiFENesin/DM ER 600-30 MG TABLET PO PRN (03:02)
[2019-06-13] MEDS ORDERED: MORPHINE 4 MG/1 ML VIAL IV PRN (03:02)
[2019-06-13] MEDS ORDERED: ALUMINUM/MAGNES/SIMETH MAX STR 30 ML UDCUP PO PRN (03:02)
[2019-06-13] MEDS ORDERED: ACETAMINOPHEN 325 MG TABLET PO PRN (03:02)
[2019-06-13] MEDS ORDERED: NICOTINE 21 MG/24 HR PATCH TRANSDERM PRN (03:02)
[2019-06-13] MEDS ORDERED: diphenhydrAMINE CAP 25 MG CAPSULE PO PRN (03:02)
[2019-06-13] MEDS ORDERED: ONDANSETRON 4 MG/2 ML VIAL IV PRN (03:02)
[2019-06-13] MEDS: ALBUTEROL/IPRATROPIUM 3 ML NEB RESP TX SCH ×3 (07:42→19:36)
[2019-06-13 11:45] LABS: Apearance,Urine CLEAR (Clear); Bacteria,Urine Occasional /HPF (Few); Bilirubin,Urine Negative (Negative); Blood, Urine Negative (Negative); Glucose,Urine (UA) Negative (Negative); Ketones,Urine 5 mg/dL (Negative); Mucus,Urine Occasional /LPF (Occasional); Nitrite,Urine Negative (Negative); Protein,Urine Negative; RBC,Urine 3 /HPF (0-4); Squamous Epithelial Cell,Urine Occasional /HPF (0-10); Urine Color Yellow (Yellow); Urine Specific Gravity 1.018 (1.001-1.035); Urine Urobilinogen < 2.0 EU/DL (0.2-1.0); WBC,Urine <1 /HPF (0-6)
[2019-06-13 12:34] LABS: ABG Base Excess 2.9 MMOL/L (-2.5-2.5); ABG HCO3 26.7 MMOL/L (20-26); ABG Oxygen Saturation 96.5 % (95-100); ABG PH 7.465 (7.35-7.45); ABG PO2 83.8 MM HG (80-95); ABG TCO2 27.9 MMOL/L (23-27)
[2019-06-13] MEDS: methylPREDNISolone SOD SUC 40 MG/1 ML VIAL IV SCH (13:22)
[2019-06-13] MEDS: ARFORMOTEROL 15 MCG/2 ML NEB RESP TX SCH ×2 (15:36→19:36)
[2019-06-13] MEDS: BUDESONIDE 0.5 MG/2 ML NEB RESP TX SCH ×2 (15:36→19:36)
[2019-06-14] MEDS: methylPREDNISolone SOD SUC 40 MG/1 ML VIAL IV SCH (00:40)
[2019-06-14] MEDS: ALBUTEROL/IPRATROPIUM 3 ML NEB RESP TX SCH ×2 (01:33→06:54)
[2019-06-14] MEDS ORDERED: LEVOFLOXACIN INJ 750 MG in PREMIX 1 EACH IV SCH (04:00)
[2019-06-14] MEDS: ARFORMOTEROL 15 MCG/2 ML NEB RESP TX SCH (06:54)
[2019-06-14] MEDS: BUDESONIDE 0.5 MG/2 ML NEB RESP TX SCH (06:54)
[2019-06-14 08:31] VITALS: BP 134/55
[2019-06-14 08:31] LABS: Basophils % 0.1 % (0.0-0.8); Eosinophils % 0.1 % (0.00-10.9); Hematocrit 28.2 VOL% (42.0-52.0); Hemoglobin 8.8 GM/DL (14.0-18.0); Immature Granulocytes % 0.4 %; Immature Granulocytes Absolute 0.03 #; Lymphocytes % 14.2 % (21.2-54.2); Mean Corpuscular HGB Conc 31.2 GM/DL (32-36); Mean Corpuscular Volume 106.4 FL (87-102); Mean Platelet Volume 9.4 FL (9.6-12.0); Monocytes % 9.4 % (1.7-12.7); Neutrophils % 75.8 % (38.7-73.9); Platelet Count 245 T/CUMM (130-400); Red Blood Count 2.65 MC/CUMM (3.8-5.5); Red Cell Distribution Width 15.6 % (9.3-17.3); White Blood Count 6.7 T/CUMM (4-12)
[2019-06-14 08:48] LABS: Calcium 8.4 MG/DL (8.5-10.1); Osmolality,Calculated 277.7 MOS/KG (273-304)
== END 2019-06-14 12:07 | disposition home or self-care (01) ==
LOC: EDUNIT# → EDBD → N.ED 00:43 → N.EDINP 00:43 → SUATTDRO 03:02 → N.3E 03:23
PROVIDERS: ADMIT Internal Medicine; ATTEND Family Medicine

== ENCOUNTER 2019-06-25 17:58 | Inpatient (IN) ==
[2019-06-25 18:29] LABS: Basophils % 0.4 % (0.0-0.8); Eosinophils # 0.1 10*3/uL (0.0-0.87); Eosinophils % 0.6 % (0.00-10.9); Hematocrit 26.8 VOL% (42.0-52.0); Hemoglobin 8.2 GM/DL (14.0-18.0); Immature Granulocytes % 0.6 %; Immature Granulocytes Absolute 0.05 #; Lymphocytes % 12.4 % (21.2-54.2); Mean Corpuscular HGB Conc 30.6 GM/DL (32-36); Mean Corpuscular Volume 107.2 FL (87-102); Mean Platelet Volume 9.2 FL (9.6-12.0); Monocytes % 7.5 % (1.7-12.7); Neutrophils % 78.5 % (38.7-73.9); Platelet Count 295 T/CUMM (130-400); Red Cell Distribution Width 16.2 % (9.3-17.3)
[2019-06-25 18:56] LABS: Albumin 3.1 G/DL (3.4-5.0); Bilirubin,Total 0.6 MG/DL (0.2-1.0); Calcium 8.5 MG/DL (8.5-10.1); Osmolality,Calculated 270.2 MOS/KG (273-304); Total Protein 6.6 G/DL (6.4-8.3)
[2019-06-25] MEDS ORDERED: ALBUTEROL/IPRATROPIUM 3 ML NEB RESP TX STA (19:21)
[2019-06-25] MEDS ORDERED: FUROSEMIDE 40 MG/4 ML VIAL IV STA (19:21)
[2019-06-25] MEDS ORDERED: methylPREDNISolone SOD SUC 125 MG/2 ML VIAL IV STA (19:21)
[2019-06-26] MEDS ORDERED: DEXTROSE 50% 25 GM/50 ML VIAL IV PRN (00:30)
[2019-06-26] MEDS ORDERED: GLUCAGON 1 MG VIAL IM PRN (00:30)
[2019-06-26] MEDS ORDERED: guaiFENesin/DM ER 600-30 MG TABLET PO PRN (00:30)
[2019-06-26] MEDS ORDERED: hydrALAZINE 20 MG/1 ML VIAL IV PRN (00:30)
[2019-06-26] MEDS ORDERED: diphenhydrAMINE CAP 25 MG CAPSULE PO PRN (00:30)
[2019-06-26] MEDS ORDERED: NICOTINE 21 MG/24 HR PATCH TRANSDERM PRN (00:30)
[2019-06-26] MEDS ORDERED: ONDANSETRON 4 MG/2 ML VIAL IV PRN (00:30)
[2019-06-26] MEDS ORDERED: ACETAMINOPHEN 325 MG TABLET PO PRN (00:30)
[2019-06-26] MEDS ORDERED: ALUMINUM/MAGNES/SIMETH MAX STR 30 ML UDCUP PO PRN (00:30)
[2019-06-26] MEDS ORDERED: AZITHROMYCIN 500 MG VIAL IV ONE (00:42)
[2019-06-26] MEDS ORDERED: AZITHROMYCIN INJ 500 MG in SODIUM CHLORIDE 0.9% 250 ML IV STA (00:47)
[2019-06-26 01:15] LABS: ABG Base Excess 1.4 MMOL/L (-2.5-2.5); ABG HCO3 25.7 MMOL/L (20-26); ABG Oxygen Saturation 98.7 % (95-100); ABG PCO2 42.3 MM HG (35-48); ABG PH 7.401 (7.35-7.45); ABG PO2 94.1 MM HG (80-95); ABG TCO2 24.2 MMOL/L (23-27); Allen Test Positive
[2019-06-26 01:38] LABS: Apearance,Urine CLEAR (Clear); Bilirubin,Urine Negative (Negative); Blood, Urine Negative (Negative); Glucose,Urine (UA) Negative (Negative); Ketones,Urine Negative (Negative); Nitrite,Urine Negative (Negative); Protein,Urine Negative; RBC,Urine 1 /HPF (0-4); Urine Color Yellow (Yellow); Urine Specific Gravity 1.025 (1.001-1.035); Urine Urobilinogen < 2.0 EU/DL (0.2-1.0)
[2019-06-26 04:01] LABS: Basophils % 0.2 % (0.0-0.8); Eosinophils % 0.1 % (0.00-10.9); Hemoglobin 8.3 GM/DL (14.0-18.0); Immature Granulocytes % 0.6 %; Immature Granulocytes Absolute 0.06 #; Lymphocytes # 0.6 10*3/uL (1.4-4.0); Lymphocytes % 6.8 % (21.2-54.2); Mean Corpuscular HGB Conc 31.9 GM/DL (32-36); Mean Corpuscular Volume 107.9 FL (87-102); Mean Platelet Volume 9.9 FL (9.6-12.0); Neutrophils % 86.3 % (38.7-73.9); Platelet Count 275 T/CUMM (130-400); Red Blood Count 2.41 MC/CUMM (3.8-5.5); Red Cell Distribution Width 17.5 % (9.3-17.3); White Blood Count 9.4 T/CUMM (4-12)
[2019-06-26 04:44] LABS: Calcium 8.4 MG/DL (8.5-10.1); Osmolality,Calculated 270.2 MOS/KG (273-304)
[2019-06-26] MEDS: AZITHROMYCIN 250 MG TABLET PO SCH (09:00)
[2019-06-26] MEDS ORDERED: MAGNESIUM SULF RIDER 2 GM in PREMIX 1 EACH IV ONE (12:00)
[2019-06-26] MEDS: MEROPENEM 500 MG in SODIUM CHLORIDE 0.9% 100 ML IV SCH ×2 (13:00→18:15)
[2019-06-26] MEDS: ARFORMOTEROL 15 MCG/2 ML NEB RESP TX SCH (20:30)
[2019-06-26] MEDS: cilostazoL 100 MG TABLET PO SCH (20:38)
[2019-06-26] MEDS: TAMSULOSIN 0.4 MG CAPSULE PO SCH (20:38)
[2019-06-26] MEDS: PHENYTOIN ER 100 MG CAPSULE PO SCH (20:38)
[2019-06-27] MEDS: MEROPENEM 500 MG in SODIUM CHLORIDE 0.9% 100 ML IV SCH ×2 (01:58→09:40)
[2019-06-27 06:32] LABS: Basophils % 0.3 % (0.0-0.8); Eosinophils # 0.1 10*3/uL (0.0-0.87); Eosinophils % 0.7 % (0.00-10.9); Hematocrit 24.1 VOL% (42.0-52.0); Hemoglobin 7.4 GM/DL (14.0-18.0); Immature Granulocytes % 0.4 %; Immature Granulocytes Absolute 0.04 #; Lymphocytes # 0.9 10*3/uL (1.4-4.0); Lymphocytes % 10.3 % (21.2-54.2); Mean Corpuscular HGB Conc 30.7 GM/DL (32-36); Mean Corpuscular Volume 108.6 FL (87-102); Mean Platelet Volume 10.3 FL (9.6-12.0); Monocytes % 7.7 % (1.7-12.7); Neutrophils % 80.6 % (38.7-73.9); Platelet Count 223 T/CUMM (130-400); Red Blood Count 2.22 MC/CUMM (3.8-5.5); Red Cell Distribution Width 17.4 % (9.3-17.3)
[2019-06-27 06:56] LABS: Albumin 2.7 G/DL (3.4-5.0); Bilirubin,Total 0.6 MG/DL (0.2-1.0); Osmolality,Calculated 274.8 MOS/KG (273-304); Total Protein 5.7 G/DL (6.4-8.3)
[2019-06-27] MEDS: ARFORMOTEROL 15 MCG/2 ML NEB RESP TX SCH ×2 (07:55→19:00)
[2019-06-27] MEDS: ASPIRIN CHEW 81 MG TABLET PO SCH (09:30)
[2019-06-27] MEDS: TAMSULOSIN 0.4 MG CAPSULE PO SCH ×2 (09:39→22:13)
[2019-06-27] MEDS: PHENYTOIN ER 100 MG CAPSULE PO SCH ×2 (09:39→22:13)
[2019-06-27] MEDS: AZITHROMYCIN 250 MG TABLET PO SCH (09:39)
[2019-06-27] MEDS: cilostazoL 100 MG TABLET PO SCH ×2 (09:39→22:13)
[2019-06-27] MEDS ORDERED: ALBUTEROL 2.5 MG/3 ML NEB RESP TX PRN (09:49)
[2019-06-27] MEDS ORDERED: POLYCARBOPHIL 625 MG TABLET PO PRN (09:49)
[2019-06-27] MEDS ORDERED: NON-FORMULARY MEDICATION (Cranberry 500 MG) PO SCH (10:00)
[2019-06-27] MEDS ORDERED: predniSONE 10 MG TABLET PO SCH (10:00)
[2019-06-27] MEDS: CHOLECALCIFEROL 5,000 UNIT TABLET PO SCH (10:15)
[2019-06-27] MEDS: ATORVASTATIN 20 MG TABLET PO SCH (10:15)
[2019-06-27] MEDS: MULTIVITAMIN (BEROCCA) TABLET PO SCH (10:15)
[2019-06-27] MEDS: PANTOPRAZOLE 40 MG TABLET PO SCH (10:15)
[2019-06-27] MEDS: BUDESONIDE/FORMOTEROL 160-4.5 INHALER 6 GM INH SCH ×2 (10:15→22:13)
[2019-06-27] MEDS: MULTIVITAMIN (CENTRUM) TABLET PO SCH (10:15)
[2019-06-27] MEDS: OMEGA 3 ACID ETHYL ESTERS 1 GM CAPSULE PO SCH ×2 (10:15→22:13)
[2019-06-27] MEDS ORDERED: BICILLIN LA 1,200,000 UNIT/2 ML SYRINGE IM ONE (11:00)
[2019-06-27] MEDS: NICOTINE 21 MG/24 HR PATCH TRANSDERM SCH (14:27)
[2019-06-27] MEDS: PIPERACILLIN/TAZOBACTAM 3,375 MG in SODIUM CHLORIDE 0.9% 100 ML IV SCH ×2 (14:28→22:20)
[2019-06-27 14:45] LABS: PT Patient Result 11.2 SECS (9.8-11.9)
[2019-06-27] MEDS ORDERED: AMOXICILLIN/CLAV 875 MG TABLET PO SCH (21:00)
[2019-06-27] MEDS: APIXABAN 5 MG TABLET PO SCH (22:13)
[2019-06-28] MEDS: PIPERACILLIN/TAZOBACTAM 3,375 MG in SODIUM CHLORIDE 0.9% 100 ML IV SCH ×2 (06:26→12:10)
[2019-06-28] MEDS: ARFORMOTEROL 15 MCG/2 ML NEB RESP TX SCH (06:44)
[2019-06-28 06:45] LABS: Basophils % 0.1 % (0.0-0.8); Eosinophils % 0.3 % (0.00-10.9); Hematocrit 24.3 VOL% (42.0-52.0); Hemoglobin 7.3 GM/DL (14.0-18.0); Immature Granulocytes % 0.3 %; Immature Granulocytes Absolute 0.03 #; Lymphocytes # 0.7 10*3/uL (1.4-4.0); Lymphocytes % 7.4 % (21.2-54.2); Mean Corpuscular Volume 107.5 FL (87-102); Mean Platelet Volume 9.5 FL (9.6-12.0); Monocytes % 8.6 % (1.7-12.7); Neutrophils % 83.3 % (38.7-73.9); Platelet Count 263 T/CUMM (130-400); Red Blood Count 2.26 MC/CUMM (3.8-5.5); Red Cell Distribution Width 16.7 % (9.3-17.3); White Blood Count 9.8 T/CUMM (4-12)
[2019-06-28 06:58] LABS: Calcium 8.1 MG/DL (8.5-10.1); Osmolality,Calculated 280.7 MOS/KG (273-304)
[2019-06-28] MEDS: cilostazoL 100 MG TABLET PO SCH (08:59)
[2019-06-28] MEDS: CHOLECALCIFEROL 5,000 UNIT TABLET PO SCH (08:59)
[2019-06-28] MEDS: MULTIVITAMIN (BEROCCA) TABLET PO SCH (08:59)
[2019-06-28] MEDS: TAMSULOSIN 0.4 MG CAPSULE PO SCH (08:59)
[2019-06-28] MEDS: PANTOPRAZOLE 40 MG TABLET PO SCH (08:59)
[2019-06-28] MEDS: NICOTINE 21 MG/24 HR PATCH TRANSDERM SCH (08:59)
[2019-06-28] MEDS: ASPIRIN CHEW 81 MG TABLET PO SCH (08:59)
[2019-06-28] MEDS: PHENYTOIN ER 100 MG CAPSULE PO SCH (08:59)
[2019-06-28] MEDS: MULTIVITAMIN (CENTRUM) TABLET PO SCH (08:59)
[2019-06-28] MEDS: APIXABAN 5 MG TABLET PO SCH (08:59)
[2019-06-28] MEDS: BUDESONIDE/FORMOTEROL 160-4.5 INHALER 6 GM INH SCH (08:59)
[2019-06-28] MEDS: AZITHROMYCIN 250 MG TABLET PO SCH (08:59)
[2019-06-28] MEDS: OMEGA 3 ACID ETHYL ESTERS 1 GM CAPSULE PO SCH (08:59)
[2019-06-28] MEDS: ATORVASTATIN 20 MG TABLET PO SCH (08:59)
[2019-06-28 09:21] VITALS: BP 119/56
[2019-06-28] MEDS ORDERED: FUROSEMIDE 40 MG/4 ML VIAL IV ONE (09:23)
[2019-06-29] MEDS ORDERED: FERROUS SULFATE 325 MG TABLET PO SCH (09:00)
[2019-07-04] MEDS ORDERED: APIXABAN 5 MG TABLET PO SCH (21:00)
== END 2019-06-28 12:09 | disposition home or self-care (01) | DRG 193 ==
LOC: EDBD → EDUNIT# → N.ED 17:58 → N.EDINP 22:12 → SUATTDRO 22:12 → N.CC 06-26 02:15 → N.2E 06-26 16:44
PROVIDERS: ADMIT Internal Medicine; ATTEND Family Medicine

== ENCOUNTER 2019-07-08 21:05 | Inpatient (IN) ==
[2019-07-08] MEDS ORDERED: ONDANSETRON 4 MG/2 ML VIAL IV STA (21:28)
[2019-07-08] MEDS ORDERED: ALBUTEROL/IPRATROPIUM 3 ML NEB RESP TX STA (21:28)
[2019-07-08] MEDS ORDERED: methylPREDNISolone SOD SUC 125 MG/2 ML VIAL IV STA (21:28)
[2019-07-08] MEDS ORDERED: FUROSEMIDE 40 MG/4 ML VIAL IV STA (21:28)
[2019-07-08 21:45] LABS: Basophils % 0.1 % (0.0-0.8); Eosinophils % 0.1 % (0.00-10.9); Hematocrit 18.6 VOL% (42.0-52.0); Immature Granulocytes % 0.6 %; Immature Granulocytes Absolute 0.07 #; Lymphocytes # 1.6 10*3/uL (1.4-4.0); Lymphocytes % 14.7 % (21.2-54.2); Mean Corpuscular HGB Conc 26.3 GM/DL (32-36); Mean Corpuscular Volume 107.5 FL (87-102); Mean Platelet Volume 10.1 FL (9.6-12.0); Monocytes % 8.7 % (1.7-12.7); Neutrophils % 75.8 % (38.7-73.9); Platelet Count 392 T/CUMM (130-400); Red Blood Count 1.73 MC/CUMM (3.8-5.5); Red Cell Distribution Width 17.5 % (9.3-17.3); White Blood Count 10.8 T/CUMM (4-12)
[2019-07-08 21:46] LABS: Hemoglobin 4.9 GM/DL (14.0-18.0)
[2019-07-08] MEDS ORDERED: ALBUTEROL 2.5 MG/3 ML NEB RESP TX STA (21:54)
[2019-07-08 21:55] LABS: Albumin 2.7 G/DL (3.4-5.0); Bilirubin,Total 0.4 MG/DL (0.2-1.0); Calcium 7.9 MG/DL (8.5-10.1); Osmolality,Calculated 284.5 MOS/KG (273-304); Total Protein 5.7 G/DL (6.4-8.3)
[2019-07-08] MEDS ORDERED: SODIUM CHLORIDE 0.9% 1,000 ML IV PRN (21:55)
[2019-07-08] MEDS ORDERED: ZALEPLON 5 MG CAPSULE PO PRN (22:07)
[2019-07-08] MEDS ORDERED: PROMETHAZINE 25 MG/1 ML VIAL IM PRN (22:07)
[2019-07-08] MEDS ORDERED: ONDANSETRON 4 MG/2 ML VIAL IV PRN (22:07)
[2019-07-08] MEDS ORDERED: guaiFENesin/DM ER 600-30 MG TABLET PO PRN (22:07)
[2019-07-08] MEDS ORDERED: ACETAMINOPHEN 325 MG TABLET PO PRN (22:07)
[2019-07-08] MEDS ORDERED: DOCUSATE SODIUM 100 MG CAPSULE PO PRN (22:07)
[2019-07-08] MEDS ORDERED: DEXTROSE 50% 25 GM/50 ML VIAL IV PRN (22:07)
[2019-07-08] MEDS ORDERED: GLUCAGON 1 MG VIAL IM PRN (22:07)
[2019-07-08] MEDS ORDERED: hydrALAZINE 20 MG/1 ML VIAL IV PRN (22:07)
[2019-07-08 22:09] LABS: INR 1.1; PT Patient Result 11.8 SECS (9.8-11.9)
[2019-07-08 22:18] LABS: ABG HCO3 22.8 MMOL/L (20-26); ABG PH 7.412 (7.35-7.45); ABG TCO2 21.1 MMOL/L (23-27); Allen Test Positive
[2019-07-08] MEDS ORDERED: FAMOTIDINE 20 MG/2 ML VIAL IV SCH (22:30)
[2019-07-08] MEDS ORDERED: PANTOPRAZOLE INJ 80 MG in SODIUM CHLORIDE 0.9% 100 ML IV ONE (23:00)
[2019-07-08 23:13] LABS: Anisocytosis 1+; Microcytosis 1+; Polychromasia 1+
[2019-07-08 23:14] LABS: Hypochromasia 1+; Target Cells Few
[2019-07-08 23:18] LABS: Platelet Estimate Normal; Stomatocytes Slight
[2019-07-09 01:02] LABS: Basophils % 0.1 % (0.0-0.8); Immature Granulocytes % 0.4 %; Immature Granulocytes Absolute 0.04 #; Lymphocytes # 0.4 10*3/uL (1.4-4.0); Lymphocytes % 3.8 % (21.2-54.2); Mean Corpuscular HGB Conc 28.7 GM/DL (32-36); Mean Platelet Volume 10.1 FL (9.6-12.0); Monocytes % 3.8 % (1.7-12.7); Neutrophils % 91.9 % (38.7-73.9); Platelet Count 316 T/CUMM (130-400); Red Blood Count 1.59 MC/CUMM (3.8-5.5); Red Cell Distribution Width 17.3 % (9.3-17.3); White Blood Count 9.5 T/CUMM (4-12)
[2019-07-09 01:05] LABS: Hematocrit 16.7 VOL% (42.0-52.0); Hemoglobin 4.8 GM/DL (14.0-18.0)
[2019-07-09] MEDS: PANTOPRAZOLE INJ 200 MG in SODIUM CHLORIDE 0.9% 250 ML IV SCH ×2 (01:12→16:29)
[2019-07-09] MEDS: ALBUTEROL/IPRATROPIUM 3 ML NEB RESP TX SCH ×4 (01:17→20:02)
[2019-07-09 01:56] LABS: Lymphocytes 4 % (20-55); Segmented Neutrophils 94 % (50-85); Total Cells Counted 100
[2019-07-09 01:57] LABS: Anisocytosis 1+; Hypochromasia 1+; Platelet Estimate Normal
[2019-07-09 01:58] LABS: Polychromasia 1+; Stomatocytes Few; Target Cells Few
[2019-07-09 01:59] LABS: Microcytosis 1+
[2019-07-09 02:02] LABS: Sedimentation Rate-Westergren 123 MM/HR (0-20)
[2019-07-09 02:41] LABS: Folate > 24.0 NG/ML (5.4-24.0); Vitamin B12 1060 PG/ML (211-911)
[2019-07-09 03:02] LABS: Apearance,Urine CLEAR (Clear); Bilirubin,Urine Negative (Negative); Blood, Urine Negative (Negative); Glucose,Urine (UA) Negative (Negative); Hyaline Casts,Urine 1 /LPF (0-3); Ketones,Urine Negative (Negative); Mucus,Urine Occasional /LPF (Occasional); Nitrite,Urine Negative (Negative); Protein,Urine Negative; RBC,Urine <1 /HPF (0-4); Urine Color Yellow (Yellow); Urine Specific Gravity 1.011 (1.001-1.035); Urine Urobilinogen < 2.0 EU/DL (0.2-1.0); WBC,Urine <1 /HPF (0-6)
[2019-07-09 03:38] LABS: Basophils % 0.1 % (0.0-0.8); Immature Granulocytes % 0.7 %; Immature Granulocytes Absolute 0.06 #; Lymphocytes # 0.4 10*3/uL (1.4-4.0); Lymphocytes % 4.2 % (21.2-54.2); Mean Corpuscular HGB Conc 26.7 GM/DL (32-36); Mean Corpuscular Volume 105.1 FL (87-102); Mean Platelet Volume 9.6 FL (9.6-12.0); Monocytes % 1.9 % (1.7-12.7); Neutrophils % 93.1 % (38.7-73.9); Platelet Count 271 T/CUMM (130-400); Red Blood Count 1.57 MC/CUMM (3.8-5.5); Red Cell Distribution Width 17.1 % (9.3-17.3); White Blood Count 8.3 T/CUMM (4-12)
[2019-07-09 03:39] LABS: Hematocrit 16.5 VOL% (42.0-52.0); Hemoglobin 4.4 GM/DL (14.0-18.0)
[2019-07-09 04:06] LABS: Anisocytosis 1+; Lymphocytes 3 % (20-55); Platelet Estimate Normal; Polychromasia 1+; Segmented Neutrophils 97 % (50-85); Total Cells Counted 100
[2019-07-09 04:07] LABS: Stomatocytes Slight
[2019-07-09 04:09] LABS: Hypochromasia 1+; Macrocytosis Slight; Microcytosis 1+; Target Cells Slight
[2019-07-09 05:57] LABS: Calcium 7.8 MG/DL (8.5-10.1); Osmolality,Calculated 287.4 MOS/KG (273-304)
[2019-07-09] MEDS ORDERED: SODIUM CHLORIDE 0.9% 1,000 ML IV PRN (07:08)
[2019-07-09] MEDS ORDERED: FUROSEMIDE 20 MG/2 ML VIAL IV ONE ×2 (07:09→13:31)
[2019-07-09 08:41] LABS: % Iron Saturation 5.1 % (18-50)
[2019-07-09] MEDS: NICOTINE 21 MG/24 HR PATCH TRANSDERM SCH (09:40)
[2019-07-09] MEDS: IRON SUCROSE 100 MG/5 ML VIAL IV SCH (09:41)
[2019-07-09] MEDS ORDERED: diphenhydrAMINE 50 MG/1 ML VIAL ONE (13:28)
[2019-07-09] MEDS ORDERED: FUROSEMIDE 40 MG/4 ML VIAL ONE (13:29)
[2019-07-09] MEDS ORDERED: diphenhydrAMINE 50 MG/1 ML VIAL IV ONE (13:31)
[2019-07-09] MEDS ORDERED: ETOMIDATE 20 MG/10 ML VIAL IV ONE ×2 (13:45→13:56)
[2019-07-09] MEDS ORDERED: VECURONIUM 10 MG VIAL IV ONE ×2 (13:45→13:55)
[2019-07-09] MEDS ORDERED: ALBUMIN 5% 12.5 GM/250 ML VIAL IV ONE (13:56)
[2019-07-09 14:16] LABS: Apearance,Urine CLEAR (Clear); Bilirubin,Urine Negative (Negative); Blood, Urine Negative (Negative); Glucose,Urine (UA) Negative (Negative); Ketones,Urine Negative (Negative); Nitrite,Urine Negative (Negative); Protein,Urine Negative; RBC,Urine <1 /HPF (0-4); Urine Color Yellow (Yellow); Urine Specific Gravity 1.024 (1.001-1.035); Urine Urobilinogen < 2.0 EU/DL (0.2-1.0); WBC,Urine 1 /HPF (0-6)
[2019-07-09] MEDS ORDERED: PROTAMINE SULFATE 50 MG/5 ML VIAL IV ONE (14:18)
[2019-07-09 14:20] LABS: ABG Base Excess -0.1 MMOL/L (-2.5-2.5); ABG HCO3 25.3 MMOL/L (20-26); ABG Oxygen Saturation 99.3 % (95-100); ABG PCO2 44.8 MM HG (35-48); ABG PH 7.369 (7.35-7.45); ABG PO2 211.3 MM HG (80-95); ABG TCO2 26.6 MMOL/L (23-27); Allen Test Positive; Pt O2 Delivery Device Ventilator
[2019-07-09] MEDS ORDERED: PHENYLEPHRINE DRIP 40 MG/250 ML PREMIX IV PRN (15:20)
[2019-07-09] MEDS: ATORVASTATIN 20 MG TABLET PO SCH (20:51)
[2019-07-09 22:48] LABS: Hematocrit 30.2 VOL% (42.0-52.0); Hemoglobin 9.1 GM/DL (14.0-18.0)
[2019-07-10] MEDS ORDERED: DEXTROSE 10% 250 ML IV ONE ×2 (00:15→02:55)
[2019-07-10] MEDS: DEXTROSE 10% 250 ML BAG IV PRN ×5 (00:30→18:10)
[2019-07-10] MEDS: PANTOPRAZOLE INJ 200 MG in SODIUM CHLORIDE 0.9% 250 ML IV SCH (01:22)
[2019-07-10] MEDS: ALBUTEROL/IPRATROPIUM 3 ML NEB RESP TX SCH ×7 (01:35→23:49)
[2019-07-10 04:33] LABS: Allen Test Positive; Pt O2 Delivery Device Ventilator
[2019-07-10 04:34] LABS: ABG Base Excess 0.6 MMOL/L (-2.5-2.5); ABG HCO3 25.5 MMOL/L (20-26); ABG Oxygen Saturation 98.7 % (95-100); ABG PCO2 41.9 MM HG (35-48); ABG PH 7.402 (7.35-7.45); ABG PO2 149.8 MM HG (80-95); ABG TCO2 26.8 MMOL/L (23-27)
[2019-07-10 05:24] LABS: Basophils % 0.2 % (0.0-0.8); Eosinophils % 0.4 % (0.00-10.9); Hematocrit 25.4 VOL% (42.0-52.0); Hemoglobin 7.8 GM/DL (14.0-18.0); Immature Granulocytes % 0.5 %; Immature Granulocytes Absolute 0.05 #; Lymphocytes # 0.8 10*3/uL (1.4-4.0); Lymphocytes % 7.2 % (21.2-54.2); Mean Corpuscular HGB Conc 30.7 GM/DL (32-36); Mean Corpuscular Volume 94.8 FL (87-102); Monocytes % 8.3 % (1.7-12.7); Neutrophils % 83.4 % (38.7-73.9); Platelet Count 246 T/CUMM (130-400); Red Blood Count 2.68 MC/CUMM (3.8-5.5); Red Cell Distribution Width 20.5 % (9.3-17.3); White Blood Count 10.4 T/CUMM (4-12)
[2019-07-10 05:50] LABS: Calcium 7.6 MG/DL (8.5-10.1); Osmolality,Calculated 285.4 MOS/KG (273-304)
[2019-07-10 08:25] LABS: Hemoglobin A1 (Alkaline) 97.6 % (96.5-98.5); Hemoglobin A2 (Alkaline) 2.4 % (1.5-3.5)
[2019-07-10] MEDS ORDERED: LIDOCAINE 2% 5 ML VIAL ONE ×2 (08:59→09:00)
[2019-07-10] MEDS: NICOTINE 21 MG/24 HR PATCH TRANSDERM SCH (08:59)
[2019-07-10] MEDS ORDERED: ETOMIDATE 40 MG/20 ML VIAL IV ONE (09:00)
[2019-07-10] MEDS ORDERED: KETAMINE 500 MG/10 ML VIAL ONE (09:00)
[2019-07-10] MEDS ORDERED: ETOMIDATE 20 MG/10 ML VIAL IV ONE (09:00)
[2019-07-10] MEDS: IRON SUCROSE 100 MG/5 ML VIAL IV SCH (09:01)
[2019-07-10] MEDS: BISACODYL 5 MG TABLET NG SCH ×2 (09:50→16:45)
[2019-07-10] MEDS ORDERED: POLYETHYLENE GLYCOL 3350/ELECTROLYTES 4,000 ML BOTTLE NG ONE (16:00)
[2019-07-10] MEDS: POTASSIUM CHLORIDE 20 MEQ/15 ML UDCUP PER TUBE SCH ×2 (16:11→21:08)
[2019-07-10] MEDS: ATORVASTATIN 20 MG TABLET PO SCH (21:08)
[2019-07-11] MEDS: POTASSIUM CHLORIDE 20 MEQ/15 ML UDCUP PER TUBE SCH (00:48)
[2019-07-11] MEDS: BISACODYL 5 MG TABLET NG SCH (00:51)
[2019-07-11] MEDS: ALBUTEROL/IPRATROPIUM 3 ML NEB RESP TX SCH ×6 (02:30→23:05)
[2019-07-11 02:37] LABS: Basophils % 0.2 % (0.0-0.8); Eosinophils % 0.2 % (0.00-10.9); Hematocrit 25.5 VOL% (42.0-52.0); Hemoglobin 7.5 GM/DL (14.0-18.0); Immature Granulocytes % 0.5 %; Immature Granulocytes Absolute 0.07 #; Lymphocytes # 0.5 10*3/uL (1.4-4.0); Lymphocytes % 3.9 % (21.2-54.2); Mean Corpuscular HGB Conc 29.4 GM/DL (32-36); Mean Corpuscular Volume 97.3 FL (87-102); Mean Platelet Volume 9.8 FL (9.6-12.0); Monocytes % 5.5 % (1.7-12.7); Neutrophils % 89.7 % (38.7-73.9); Platelet Count 231 T/CUMM (130-400); Red Blood Count 2.62 MC/CUMM (3.8-5.5); Red Cell Distribution Width 19.9 % (9.3-17.3); White Blood Count 13.3 T/CUMM (4-12)
[2019-07-11 03:25] LABS: Calcium 7.6 MG/DL (8.5-10.1); Osmolality,Calculated 280.4 MOS/KG (273-304)
[2019-07-11 04:01] LABS: ABG Base Excess -0.4 MMOL/L (-2.5-2.5); ABG HCO3 24.1 MMOL/L (20-26); ABG Oxygen Saturation 98.3 % (95-100); ABG PCO2 36.7 MM HG (35-48); ABG PO2 85.4 MM HG (80-95); ABG TCO2 22.2 MMOL/L (23-27)
[2019-07-11 04:12] LABS: Eosinophils 1 % (0-10); Lymphocytes 3 % (20-55); Segmented Neutrophils 91 % (50-85); Total Cells Counted 100
[2019-07-11 04:13] LABS: Hypochromasia 1+; Platelet Estimate Normal; Polychromasia 1+
[2019-07-11 04:14] LABS: Microcytosis 1+
[2019-07-11 04:15] LABS: Anisocytosis 1+
[2019-07-11] MEDS ORDERED: ETOMIDATE 40 MG/20 ML VIAL IV ONE (08:06)
[2019-07-11] MEDS ORDERED: propofoL 200 MG/20 ML VIAL IV ONE (08:06)
[2019-07-11] MEDS ORDERED: PHENYLEPHRINE 1 MG/10 ML SYRINGE IV ONE (09:21)
[2019-07-11] MEDS ORDERED: MIDAZOLAM 2 MG/2 ML VIAL ONE (09:21)
[2019-07-11] MEDS ORDERED: ROCURONIUM 100 MG/10 ML VIAL IV ONE (09:21)
[2019-07-11] MEDS ORDERED: SODIUM CHLORIDE 0.9% 1,000 ML IV PRN (09:22)
[2019-07-11] MEDS: NICOTINE 21 MG/24 HR PATCH TRANSDERM SCH (09:25)
[2019-07-11] MEDS: IRON SUCROSE 100 MG/5 ML VIAL IV SCH (09:25)
[2019-07-11] MEDS: PANTOPRAZOLE 40 MG VIAL IV SCH ×2 (09:25→20:34)
[2019-07-11 15:49] LABS: Hematocrit 33.3 VOL% (42.0-52.0)
[2019-07-11 15:50] LABS: Hemoglobin 10.2 GM/DL (14.0-18.0)
[2019-07-11] MEDS: ATORVASTATIN 20 MG TABLET PO SCH (20:34)
[2019-07-12] MEDS ORDERED: SODIUM CHLORIDE 0.9% 500 ML IV ONE (00:38)
[2019-07-12] MEDS: ALBUTEROL/IPRATROPIUM 3 ML NEB RESP TX SCH ×6 (01:19→23:48)
[2019-07-12 04:03] LABS: Allen Test Positive; Pt O2 Delivery Device Ventilator
[2019-07-12 04:04] LABS: ABG Base Excess -0.7 MMOL/L (-2.5-2.5); ABG HCO3 23.8 MMOL/L (20-26); ABG Oxygen Saturation 95.4 % (95-100); ABG PCO2 38.9 MM HG (35-48); ABG PH 7.405 (7.35-7.45); ABG PO2 80.4 MM HG (80-95)
[2019-07-12 06:51] LABS: Basophils % 0.1 % (0.0-0.8); Eosinophils % 0.2 % (0.00-10.9); Hematocrit 32.6 VOL% (42.0-52.0); Hemoglobin 9.8 GM/DL (14.0-18.0); Immature Granulocytes % 0.5 %; Immature Granulocytes Absolute 0.07 #; Lymphocytes # 0.6 10*3/uL (1.4-4.0); Lymphocytes % 4.2 % (21.2-54.2); Mean Corpuscular HGB Conc 30.1 GM/DL (32-36); Mean Corpuscular Volume 98.8 FL (87-102); Mean Platelet Volume 10.2 FL (9.6-12.0); Monocytes % 6.6 % (1.7-12.7); Neutrophils % 88.4 % (38.7-73.9); Platelet Count 252 T/CUMM (130-400); Red Cell Distribution Width 18.9 % (9.3-17.3); White Blood Count 13.2 T/CUMM (4-12)
[2019-07-12 07:25] LABS: Band Neutrophils 2 % (0-10); Hypochromasia 1+; Lymphocytes 1 % (20-55); Metamyelocytes 1 %; Segmented Neutrophils 92 % (50-85); Total Cells Counted 100
[2019-07-12 07:26] LABS: Anisocytosis 1+; Microcytosis 1+; Polychromasia Slight
[2019-07-12 07:27] LABS: Platelet Estimate Normal
[2019-07-12 07:40] LABS: Calcium 8.1 MG/DL (8.5-10.1); Osmolality,Calculated 283.5 MOS/KG (273-304)
[2019-07-12] MEDS: IRON SUCROSE 100 MG/5 ML VIAL IV SCH (09:01)
[2019-07-12] MEDS: PANTOPRAZOLE 40 MG VIAL IV SCH ×2 (09:01→21:20)
[2019-07-12] MEDS: NICOTINE 21 MG/24 HR PATCH TRANSDERM SCH (09:02)
[2019-07-12] MEDS ORDERED: methylPREDNISolone SOD SUC 40 MG/1 ML VIAL IV ONE (14:51)
[2019-07-12] MEDS: methylPREDNISolone SOD SUC 40 MG/1 ML VIAL IV SCH (20:14)
[2019-07-12] MEDS: ATORVASTATIN 20 MG TABLET PO SCH (21:34)
[2019-07-12] MEDS: MORPHINE 4 MG/1 ML VIAL IV PRN (21:35)
[2019-07-13] MEDS: MORPHINE 4 MG/1 ML VIAL IV PRN (02:30)
[2019-07-13] MEDS: methylPREDNISolone SOD SUC 40 MG/1 ML VIAL IV SCH ×3 (03:28→19:17)
[2019-07-13 03:37] LABS: Allen Test Positive; Pt O2 Delivery Device Venturi Mask
[2019-07-13 03:38] LABS: ABG Base Excess -0.3 MMOL/L (-2.5-2.5); ABG HCO3 24.2 MMOL/L (20-26); ABG Oxygen Saturation 95.6 % (95-100); ABG PCO2 28.9 MM HG (35-48); ABG PH 7.494 (7.35-7.45); ABG PO2 69.9 MM HG (80-95); ABG TCO2 20.1 MMOL/L (23-27)
[2019-07-13] MEDS: ALBUTEROL/IPRATROPIUM 3 ML NEB RESP TX SCH ×6 (03:48→23:33)
[2019-07-13 07:30] LABS: Basophils % 0.1 % (0.0-0.8); Eosinophils % 0.1 % (0.00-10.9); Hematocrit 31.3 VOL% (42.0-52.0); Hemoglobin 9.6 GM/DL (14.0-18.0); Immature Granulocytes % 0.5 %; Immature Granulocytes Absolute 0.07 #; Lymphocytes # 0.3 10*3/uL (1.4-4.0); Lymphocytes % 1.9 % (21.2-54.2); Mean Corpuscular HGB Conc 30.7 GM/DL (32-36); Mean Corpuscular Volume 96.6 FL (87-102); Mean Platelet Volume 9.9 FL (9.6-12.0); Monocytes % 4.4 % (1.7-12.7); Platelet Count 248 T/CUMM (130-400); Red Blood Count 3.24 MC/CUMM (3.8-5.5); Red Cell Distribution Width 18.9 % (9.3-17.3); White Blood Count 14.9 T/CUMM (4-12)
[2019-07-13 07:50] LABS: Calcium 8.4 MG/DL (8.5-10.1); Osmolality,Calculated 283.5 MOS/KG (273-304)
[2019-07-13 08:13] LABS: Anisocytosis 1+; Band Neutrophils 5 % (0-10); Hypochromasia 1+; Lymphocytes 1 % (20-55); Segmented Neutrophils 90 % (50-85); Total Cells Counted 100
[2019-07-13] MEDS: DEXTROSE 5% NACL 0.45% 1,000 ML IV SCH (11:58)
[2019-07-13] MEDS: FERROUS SULFATE 325 MG TABLET PO SCH (12:08)
[2019-07-13] MEDS: NICOTINE 21 MG/24 HR PATCH TRANSDERM SCH (12:21)
[2019-07-13] MEDS: PANTOPRAZOLE 40 MG VIAL IV SCH ×2 (12:22→21:02)
[2019-07-13] MEDS: IRON SUCROSE 100 MG/5 ML VIAL IV SCH (12:23)
[2019-07-13] MEDS: ATORVASTATIN 20 MG TABLET PO SCH (21:03)
[2019-07-14] MEDS: DEXTROSE 5% NACL 0.45% 1,000 ML IV SCH ×2 (02:10→16:49)
[2019-07-14] MEDS: methylPREDNISolone SOD SUC 40 MG/1 ML VIAL IV SCH ×3 (02:58→16:37)
[2019-07-14] MEDS: ALBUTEROL/IPRATROPIUM 3 ML NEB RESP TX SCH ×5 (03:58→19:50)
[2019-07-14] MEDS: IRON SUCROSE 100 MG/5 ML VIAL IV SCH (08:59)
[2019-07-14 09:02] LABS: ABG Base Excess -1.4 MMOL/L (-2.5-2.5); ABG HCO3 23.2 MMOL/L (20-26); ABG Oxygen Saturation 94.4 % (95-100); ABG PCO2 31.4 MM HG (35-48); ABG TCO2 19.9 MMOL/L (23-27)
[2019-07-14] MEDS: PANTOPRAZOLE 40 MG VIAL IV SCH ×2 (09:03→20:34)
[2019-07-14] MEDS: NICOTINE 21 MG/24 HR PATCH TRANSDERM SCH (09:05)
[2019-07-14] MEDS: MORPHINE 4 MG/1 ML VIAL IV PRN (16:38)
[2019-07-14] MEDS: ATORVASTATIN 20 MG TABLET PO SCH (20:34)
[2019-07-14] MEDS ORDERED: MIRTAZAPINE 15 MG TABLET PO SCH (21:00)
[2019-07-15] MEDS: ALBUTEROL/IPRATROPIUM 3 ML NEB RESP TX SCH ×4 (00:05→11:05)
[2019-07-15] MEDS: methylPREDNISolone SOD SUC 40 MG/1 ML VIAL IV SCH ×3 (00:11→17:34)
[2019-07-15 04:46] LABS: Basophils % 0.1 % (0.0-0.8); Hematocrit 31.3 VOL% (42.0-52.0); Hemoglobin 9.3 GM/DL (14.0-18.0); Immature Granulocytes % 0.6 %; Immature Granulocytes Absolute 0.08 #; Lymphocytes # 0.3 10*3/uL (1.4-4.0); Lymphocytes % 1.9 % (21.2-54.2); Mean Corpuscular HGB Conc 29.7 GM/DL (32-36); Mean Corpuscular Volume 101.6 FL (87-102); Mean Platelet Volume 10.4 FL (9.6-12.0); Monocytes % 5.2 % (1.7-12.7); Neutrophils % 92.2 % (38.7-73.9); Platelet Count 260 T/CUMM (130-400); Red Blood Count 3.08 MC/CUMM (3.8-5.5); Red Cell Distribution Width 19.2 % (9.3-17.3); White Blood Count 13.1 T/CUMM (4-12)
[2019-07-15 05:10] LABS: Hypochromasia 1+; Lymphocytes 4 % (20-55); Polychromasia Slight; Segmented Neutrophils 94 % (50-85); Total Cells Counted 100
[2019-07-15 05:11] LABS: Anisocytosis 1+; Platelet Estimate Normal
[2019-07-15] MEDS: DEXTROSE 5% NACL 0.45% 1,000 ML IV SCH (06:27)
[2019-07-15] MEDS ORDERED: SODIUM CHLORIDE 0.9% 1,000 ML IV SCH (08:00)
[2019-07-15] MEDS ORDERED: ALPRAZolam 0.5 MG TABLET PO SCH (09:00)
[2019-07-15] MEDS: IRON SUCROSE 100 MG/5 ML VIAL IV SCH (09:24)
[2019-07-15] MEDS: PANTOPRAZOLE 40 MG VIAL IV SCH (09:25)
[2019-07-15] MEDS: NICOTINE 21 MG/24 HR PATCH TRANSDERM SCH (09:25)
[2019-07-15] MEDS: FERROUS SULFATE 325 MG TABLET PO SCH (09:25)
[2019-07-15] MEDS ORDERED: AZITHROMYCIN 250 MG TABLET PO SCH (10:30)
[2019-07-15 17:09] VITALS: BP 137/68
== END 2019-07-15 17:12 | DRG 813 ==
LOC: EDBD → EDUNIT# → N.ED 21:05 → N.EDINP 22:07 → SUATTDRO 22:07 → N.ICU 23:22 → N.CLINP 07-09 18:20
PROVIDERS: ADMIT Internal Medicine; ATTEND Emergency Medicine